=== PATIENT | female | born 1960 | race American Indian/Alaskan Native ===

== ENCOUNTER 2018-06-05 12:24 | Emergency (ER) | payer OTHER ==
[2018-06-05] MEDS ORDERED: TORADOL IM ONE (14:32)
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
[2018-06-05] MEDS ORDERED: BANOPHEN PO ONE (14:34)
[2018-06-05] MEDS ORDERED: NORCO 5/325 PO ONE (14:34)
[2018-06-05] MEDS ORDERED: BENADRYL PO ONE (14:34)
--- NOTE | 2018-06-05 17:34 | XRay Report ---
FINAL REPORT EXAM: XR KNEE 3V RT HISTORY: right knee pain and swelling TECHNIQUE: 3 views of the right knee PRIORS: None. FINDINGS: Arterial calcification is compatible with atherosclerosis. Moderate nonspecific soft tissue prominence superior to the patella on the lateral view may reflect moderate knee joint effusion. Multifocal slight degenerative articular surface irregularity. Slight medial femorotibial joint space narrowing. There is no radiographic evidence of definite acute fracture or dislocation. No evidence of osseous lesion. IMPRESSION: No acute skeletal pathology Suggestion of moderate joint effusion Degenerative change
[2018-06-05 18:34] VITALS: BP 146/72
--- NOTE | 2018-06-09 08:51 | Vascular Lab Report ---
Right Lower Extremity Venous Duplex Study: Reason for Exam: Pain and swelling of the right lower extremity. Comments on the Right: All veins visualized are freely compressible without evidence of internal echogenicity. Flow is spontaneous and phasic throughout. No evidence of acute or chronic thrombus is seen in any of the vessels visualized. A soft tissue change in the right knee area is consistent with a Alfredo's cyst. Comments on the Left: A limited duplex study was done of the proximal veins of the left lower extremity. All veins visualized are freely compressible without evidence of internal echogenicity. Flow is spontaneous and phasic throughout. No evidence of acute or chronic thrombus is seen in any of the vessels visualized. Impression: No evidence of acute or chronic deep venous thrombosis in the right lower extremity. A soft tissue change in the right knee area is consistent with a Alfredo's cyst.
== END 2018-06-05 18:31 | disposition home or self-care (01) ==
LOC: ED 12:24
DX: M25.461 Effusion, right knee (principal); F17.200 Nicotine dependence, unspecified, uncomplicated; Z88.5 Allergy status to narcotic agent; Z98.51 Tubal ligation status
CPT/HCPCS: 29505; 73562; 93971; 96372; 99284; J1885; Q0163

== ENCOUNTER 2020-06-01 11:04 | Emergency (ER) | payer BC ==
[2020-06-01 11:59] VITALS: BP 133/98
[2020-06-01] MEDS ORDERED: KETOROLAC 30 MG/1 ML INJ IM ONE (12:50)
[2020-06-01] MEDS ORDERED: ACETAMINOPHEN 325 MG TAB PO STA (12:50)
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
--- NOTE | 2020-06-01 13:13 | XRay Report ---
RIGHT KNEE 3 VIEWS INDICATION: Right Knee Pain. COMPARISON: None. IMPRESSION: No acute osseous or soft tissue abnormality. No significant DJD. RIGHT FOOT 3 VIEWS INDICATION: Right foot/calcaneal pain. COMPARISON: None. IMPRESSION: No acute osseous or soft tissue abnormality. Moderate osteoarthritic changes are iden tified at the first metatarsophalangeal joint. The remaining joint spaces are unremarkable. Tiny plan tar spur is noted on the lateral image. Signer Name: Haroldo Phan Jr, MD Signed: 06/01/2020 1:09 PM Workstation Name: [id number]
== END 2020-06-01 14:11 | disposition home or self-care (01) ==
LOC: ED 11:04
DX: M25.561 Pain in right knee (principal); M79.671 Pain in right foot; I25.2 Old myocardial infarction; I10 Essential (primary) hypertension; F17.200 Nicotine dependence, unspecified, uncomplicated; Z98.51 Tubal ligation status; Z98.890 Other specified postprocedural states; Z79.899 Other long term (current) drug therapy; Z88.8 Allergy status to other drugs, medicaments and biological substances
CPT/HCPCS: 73562; 73630; 96372; 99283; J1885